=== PATIENT | female | born 1950 | race Caucasian/White ===

== ENCOUNTER 2017-09-27 13:42 | Emergency (ER) | payer SELFPAY ==
--- NOTE | 2017-09-27 14:17 | ER ---
Nurse's Notes [facility] Name: Jennifer Rudd Age: 66 yrs Sex: Female : 1950 Arrival Date: 09/27/2017 Time: 13:46 Bed Waiting Private MD: Ledy Sears Diagnosis: Presentation: 09/27 13:53 Presenting complaint: Patient states: " I had an ice cream at lunch and I started ph having palpitations." Reports hx of A fib, c/o slight pain in L shoulder, denies SOB. Transition of care: patient was not received from another setting of care. Onset of symptoms was September 27, 2017. Risk Assessment: Do you want to hurt yourself or someone else? Patient reports no desire to harm self or others. Initial Sepsis Screen: Does the patient meet any 2 criteria? No. Patient's initial sepsis screen is negative. Does the patient have a suspected source of infection? No. Patient's initial sepsis screen is negative. Care prior to arrival: Medication(s) given: ASA, 325 mg, x 1. 13:53 Method Of Arrival: Ambulatory ph 13:53 Acuity: CHRISTOPHER 2 ph 14:13 Note Upon arrival HR in 90s, pt states, " I feel like it has stopped, this seems like ph it happens every time I eat something cold. I have an appointment w/ Dr Ricks on Sat and I'll tell him about it. If it happens again I'll come back" Pt left ED w/ spouse prior to being seen by ERP. Historical: - Allergies: 13:57 Keflex; ph - Home Meds: 13:57 Xarelto 20 mg Oral tab 1 tab once daily [Active]; losartan 25 mg Oral tab 1 tab once ph daily [Active]; atorvastatin 10 mg Oral tab 0.5 tab once daily [Active]; valacyclovir 500 mg Oral tab 1 tab once daily [Active]; - PMHx: 13:57 Atrial Fib; High Cholesterol; mitral valve prolapse; shingles; ph - PSHx: 13:57 Ablation for Afib; left ovary removed; ph - Immunization history:: Adult Immunizations. - Social history:: Smoking status: Patient/guardian denies using tobacco. - Ebola Screening: : No symptoms or risks identified at this time. Vital Signs: 13:56 BP 130 / 113; Pulse 98; Resp 16; Temp 98.0; Pulse Ox 97% on R/A; Weight 66.68 kg; ph Height 5 ft. 5 in. (165.10 cm); 14:13 BP 116 / 74; Pulse 89; Pulse Ox 100% on R/A; Pain 0/10; ph 13:56 Body Mass Index 24.46 (66.68 kg, 165.10 cm) ph ED Course: 13:46 Patient arrived in ED. rg4 13:46 Ledy Sears MD is Private Physician. rg4 13:56 Triage completed. ph 14:09 Arm band placed on. ph Administered Medications: No medications were administered Outcome: 14:17 Patient left the ED. ph Signatures: Kathia Reece, RN RN ph Letha Long rg4
[2017-09-27 14:26] VITALS: TEMP 98
[2017-09-27 14:28] VITALS: BP 116/74; O2SAT 100
== END 2017-09-27 14:17 | disposition left against medical advice (07) ==
LOC: ER 13:42
DX: Z53.21 Procedure and treatment not carried out due to patient leaving prior to being seen by health care provider (principal)
CPT/HCPCS: 99281